=== PATIENT | female | born 1935 | race Two or more races ===

== ENCOUNTER 2016-09-18 18:22 | Emergency (ER) | payer OTHER ==
[~2016-09-18] VITALS: Ht 162.6 cm; Wt 86.2 kg
[2016-09-18 18:36] VITALS: BP 135/81
[2016-09-18] MEDS ORDERED: HYDROCODONE/APAP 5/325MG 1 EACH TABLET ONE (18:48)
[2016-09-18] MEDS ORDERED: ONDANSETRON 4 MG TAB.RAPDIS ONE (18:49)
--- NOTE | 2016-09-18 18:55 | NUR ---
DINING HOST AT BEDSIDE
[2016-09-18] MEDS ORDERED: ONDANSETRON 4 MG TAB.RAPDIS SL ONE (19:00)
[2016-09-18] MEDS ORDERED: HYDROCODONE/APAP 5/325MG 1 EACH TABLET PO ONE (19:00)
--- NOTE | 2016-09-18 19:34 | NUR ---
PT AMBULATED TO ER BED RESTROOM WITH WALKER
== END 2016-09-18 19:53 | disposition home or self-care (01) ==
LOC: ER 18:31
DX: S93.402A Sprain of unspecified ligament of left ankle, initial encounter (principal); I10 Essential (primary) hypertension; X58.XXXA Exposure to other specified factors, initial encounter; Y92.89 Other specified places as the place of occurrence of the external cause; Y93.89 Activity, other specified; Y99.8 Other external cause status
CPT/HCPCS: 29515; 73610; 99284; A4606; Q0162; Z7610